=== PATIENT | female | born 1980 | race Caucasian/White ===

== ENCOUNTER 2022-02-22 09:27 | Emergency (ER) | payer OTHER ==
[~2022-02-22] VITALS: Ht 175.3 cm; Wt 83.2 kg
[~2022-02-22 09:27] MED LIST: ALBUTEROL SULF8.5 GM INH; CITALOPRAM HBR20 MG PO; CLARITIN10 MG PO; FIORICET 50-301 EACH PO; FIORICET 50-321 EACH PO; FLONASE ALLERG9.9 ML NS; POLYTRIM EYE DR10 ML OD; PROMETHAZINE HC25 M1 PO; RIZATRIPTAN10 MG PO; SUMATRIPTAN SU100 MG PO
== END 2022-02-22 14:00 | disposition home or self-care (01) ==
LOC: ED 09:27
DX: R10.2 Pelvic and perineal pain (principal); R10.31 Right lower quadrant pain; N20.0 Calculus of kidney; G43.909 Migraine, unspecified, not intractable, without status migrainosus; J45.909 Unspecified asthma, uncomplicated; Z88.2 Allergy status to sulfonamides; Z88.8 Allergy status to other drugs, medicaments and biological substances; Z79.899 Other long term (current) drug therapy
CPT/HCPCS: 36415; 74177; 76830; 76856; 80053; 81003; 83690; 84703; 85025; 99284-25; J7030; Q9967

== ENCOUNTER 2023-03-02 13:05 | Emergency (ER) | payer OTHER ==
[~2023-03-02] VITALS: Ht 175.3 cm; Wt 74.8 kg
[2023-03-02 14:27] LABS: BILIRUBIN, URINE NEGATIVE (negative); BLOOD/HGB, URINE NEGATIVE (Negative); KETONE, URINE SMALL (Negative); LEUK ESTERASE, URINE NEGATIVE (negative); NITRITE, URINE NEGATIVE (negative)
[2023-03-02 14:37] LABS: RED BLOOD CELLS, URINE 0-1 /hpf (0-5); WHITE BLOOD CELLS, URINE 0-1 /HPF (0-5)
[2023-03-02 14:38] LABS: CRYSTALS, URINE AMORPHOUS URATES 4+ (0-1+); EPITHELIAL CELLS, URINE 0 /lpf (0-1+); REFLEX CULTURE, URINE No (No)
[2023-03-02 14:55] LABS: BASOPHILS 1.2 % (0-2); EOSINOPHILS 1.2 % (0-6); HEMATOCRIT 39.1 % (35.0-50.0); HEMOGLOBIN 12.9 g/dL (12.0-18.0); LYMPHOCYTES 6.8 % (24-44); MCH 30.2 (27-36); MCHC 32.9 g/dl (30-36); MCV 91.7 fl (81-99); MONOCYTES 4.6 % (0-12); NEUTROPHILS 86.2 % (39-80); PLATELET COUNT 262 K/uL (140-440); RBC 4.27 M/ul (4.3-5.7); RDW 13.4 (10.5-15.0)
[2023-03-02 15:11] LABS: ALBUMIN 3.5 g/dL (3.4-5.0); ANION GAP 13.3 (7-21); BILIRUBIN, TOTAL 0.4 ng/dL (0.2-1.0); BUN/CREATININE RATIO 17.46 (6.0-28.6); CALCIUM 8.7 mg/dL (8.5-10.1); CREATININE, SERUM 0.63 mg/dL (0.55-1.02); POTASSIUM 3.3 mmol/L (3.5-5.1)
[2023-03-02] MEDS ORDERED: HYDROCODON-ACE1 EA11 PO (16:32)
[2023-03-02 17:07] VITALS: BP 114/77
== END 2023-03-02 17:08 | disposition home or self-care (01) ==
LOC: ED 13:05
PROVIDERS: Emergency Medicine
DX: N83.202 Unspecified ovarian cyst, left side (principal); N83.201 Unspecified ovarian cyst, right side; Z97.5 Presence of (intrauterine) contraceptive device; Z88.8 Allergy status to other drugs, medicaments and biological substances
CPT/HCPCS: 36415; 76775; 76830; 76856; 80053; 81001; 84703; 85025; 96374; 96375; 99284-25; J1170; J1885

== ENCOUNTER 2025-01-27 10:20 | Emergency (ER) | payer OTHER ==
[~2025-01-27] VITALS: Ht 175.3 cm; Wt 75.0 kg
[~2025-01-27 10:20] MED LIST changes: +CIPRO500 MG PO; +DELZICOL400 M1 PO; +HYDROCODON-ACE1 EA11 PO; +IRON325 M1 PO; +METRONIDAZOLE250 MG PO; +METRONIDAZOLE500 MG PO; +ONDANSETRON ODT8 MG PO; +PREDNISONE20 MG PO; +PROTONIX40 MG PO; +SUMATRIPTAN SUC50 MG PO; +TOPAMAX50 MG PO; +VENTOLIN HFA18 GM INH; +VITAMIN D325 MCG PO
[2025-01-27] MEDS ORDERED: WELLBUTRIN XL300 MG PO (10:35)
[2025-01-27] MEDS ORDERED: OMEPRAZOLE20 MG PO (10:35)
[2025-01-27] MEDS ORDERED: ABILIFY5 MG PO (10:35)
[2025-01-27] MEDS ORDERED: MONTELUKAST SOD10 MG PO (10:36)
[2025-01-27 11:03] LABS: BASOPHILS 0.5 % (0.1-1.2); EOSINOPHILS 1.3 % (0.7-5.8); LYMPHOCYTES 40.1 % (19.3-51.7); MCH 30.8 PG (25.6-32.2); MCHC 33.3 g/dL (32.2-35.5); MCV 92.5 fL (79.4-94.8); MONOCYTES 4.3 % (4.7-12.5); NEUTROPHILS 53.5 % (34.0-71.1); RBC 4.55 M/uL (3.93-5.22)
[2025-01-27 11:13] LABS: ALT (SGPT) 22.0 U/L (14-59); AST (SGOT) 13.0 U/L (15-37); GLOMERULAR FILTRATION RATE,EST 116.0 mL/min (>60); PROTEIN, TOTAL 7.6 g/dL (6.4-8.2); UREA NITROGEN 15.0 mg/dL (7-18)
[2025-01-27 12:38] VITALS: BP 127/87
== END 2025-01-27 12:57 | disposition home or self-care (01) ==
LOC: ED 10:20
PROVIDERS: Emergency Medicine
DX: R10.12 Left upper quadrant pain (principal); J45.909 Unspecified asthma, uncomplicated; Z88.2 Allergy status to sulfonamides; Z88.8 Allergy status to other drugs, medicaments and biological substances
CPT/HCPCS: 36415; 74177; 80053; 83690; 84703; 85025; 99284-25; Q9967